=== PATIENT | male | born 1965 | race Caucasian/White ===

== ENCOUNTER 2017-02-15 16:13 | Inpatient (IN) | payer MEDICAID ==
[~2017-02-15] VITALS: Ht 160 cm; Wt 74.4 kg
[2017-02-15 16:51] VITALS: BP 245/95
[2017-02-15] MEDS ORDERED: NITROGLYCERIN 0.4 MG TAB SL ONE (17:05)
[2017-02-15] MEDS ORDERED: ASPIRIN 325 MG TAB PO ONE (17:05)
[2017-02-15 17:23] LABS: BASOPHILS # (AUTO) 0.3 K/uL (0.00-0.22); EOSINOPHILS # (AUTO) 0.2 K/uL (0-0.4); HEMOGLOBIN 11.9 g/dL (12.0-18.0); LYMPHOCYTES # (AUTO) 1.5 K/uL (2.0-11.5); MEAN CORPUSCULAR HEMOGLOBIN 29 pg (27-31); MEAN CORPUSCULAR HGB CONC 33 g/dL (33-37); MEAN CORPUSCULAR VOLUME 87 fL (80-94); MONOCYTES # (AUTO) 0.3 K/uL (0.8-1.0); NEUTROPHILS # (AUTO) 4.8 K/uL (1.8-7.7); PLATELET COUNT (AUTO) 180 K/uL (140-450); RED BLOOD CELL COUNT(AUTO) 4.13 MIL/uL (4.20-6.10); RED CELL DISTRIBUTION WIDTH 13.6 % (11.6-13.7); WHITE BLOOD COUNT (AUTO) 7.1 K/uL (4.8-10.8)
[2017-02-15] MEDS ORDERED: NITROGLYCERIN 50 MG/D5W PREMIX 250 ML IV ONE (17:35)
[2017-02-15 17:45] LABS: ALBUMIN 3.6 g/dL (3.4-5.0); ANION GAP 15.9 (8-16); CALCIUM 8.2 mg/dL (8.5-10.1); CARBON DIOXIDE 21.7 mmol/L (21-32); POTASSIUM 5.6 mmol/L (3.5-5.1); TOTAL BILIRUBIN 0.3 mg/dL (0.0-1.0); TOTAL PROTEIN, SERUM 7.2 g/dL (6.4-8.2)
[2017-02-15] MEDS ORDERED: SODIUM POLYSTYRENE 15 GM/60 ML UDBTL PO ONE ×2 (18:00→20:30)
[2017-02-15] MEDS ORDERED: INSULIN HUMAN REGULAR 100 UNITS/ML 10 ML VIAL IVP ONE (18:00)
[2017-02-15] MEDS ORDERED: DEXTROSE 50% 50 ML SYR IVP ONE (18:00)
[2017-02-15] MEDS ORDERED: NACL 0.9% 1,000 ML IV ONE ×2 (18:30→19:20)
[2017-02-15] MEDS ORDERED: VANCOMYCIN 1,000 MG in DEXTROSE 5% 250 ML IV ONE (18:40)
[2017-02-15] MEDS ORDERED: hydrALAZINE 20 MG/ML VIAL IVP ONE (18:40)
[2017-02-15 18:44] LABS: APPEARANCE,URINE CLEAR (CLEAR); BILIRUBIN,URINE NEGATIVE (NEGATIVE); BLOOD, URINE TRACE-I (NEGATIVE); COLOR,URINE YELLOW (YELLOW); LEUKOCYTE ESTERASE ,URINE NEGATIVE (NEGATIVE); NITRITE, URINE NEGATIVE (NEGATIVE); PH,URINE 5.5 (5.0-9.0); PROTEIN,URINE 2+ (NEGATIVE); UGLUCOSE NEGATIVE (NEGATIVE); UROBILINOGEN,URINE 0.2 EU/dL (0.2 - 1)
[2017-02-15] MEDS ORDERED: DOCUSATE SODIUM 100 MG GELCAP PO PRN (18:50)
[2017-02-15] MEDS ORDERED: HYDROcodone/APAP 7.5/325 MG 1 TAB PO PRN (18:50)
[2017-02-15 18:57] LABS: BACTERIA,URINE RARE /HPF (None Seen); MUCUS,URINE 1+ /LPF (None Seen); RBC,URINE 0-3 /HPF (0-5); SQUAMOUS EPITHELIAL CELL,UR 0-3 /LPF (0-3 (FEW)); URINE AMORPHOUS URATE 1+ /HPF (None Seen); WBC,URINE 0-3 /HPF (0-5)
[2017-02-15] MEDS ORDERED: cefTRIAXone 1,000 MG VIAL ONE (19:04)
[2017-02-15] MEDS ORDERED: VANCOMYCIN 1,000 MG VIAL ONE (19:05)
[2017-02-15 19:19] LABS: INR 0.9 (0.8-1.2); PROTHROMBIN TIME 9.6 secs (10.8-13.4)
[2017-02-15] MEDS ORDERED: ACETAMINOPHEN 325 MG TAB ONE (19:20)
[2017-02-15 19:35] LABS: MAGNESIUM 3.2 mg/dL (1.8-2.4); PHOSPHORUS 4.8 mg/dL (2.5-4.9); THYROID STIMULATING HORMONE 2.48 uIU/mL (0.34-3.74)
[2017-02-15 19:58] LABS: LACTIC ACID 0.3 mmol/L (0.4-2.0)
[2017-02-15] MEDS ORDERED: MECLIZINE 25 MG TAB PO ONE (20:15)
[2017-02-15 21:00] VITALS: BP 170/71
[2017-02-15] MEDS: cefTRIAXone 2,000 MG in DEXTROSE 5% 100 ML IV SCH (21:00)
[2017-02-15] MEDS ORDERED: MORPHINE SULFATE 4 MG/ML SYR IVP ONE (21:05)
[2017-02-15] MEDS ORDERED: LORazepam 2 MG/ML VIAL IVP ONE (21:05)
[2017-02-15] MEDS: ONDANSETRON 4 MG/2 ML VIAL IM/IVP PRN (21:14)
[2017-02-15] MEDS ORDERED: cefTRIAXone 2,000 MG VIAL ONE (21:37)
[2017-02-15] MEDS: NACL 0.9% 1,000 ML IV SCH (21:47)
[2017-02-15] MEDS ORDERED: LIDOCAINE 1% 500 MG/50 ML VIAL INJ SCH (22:20)
[2017-02-16] VITALS (13 sets, daily range): BP systolic 134–202; BP diastolic 63–127
[2017-02-16] MEDS: MORPHINE SULFATE 2 MG/ML SYR IVP PRN ×2 (00:13→20:40)
[2017-02-16] MEDS ORDERED: LABETALOL 100 MG/20 ML VIAL IV PRN (00:40)
[2017-02-16] MEDS: ACETAMINOPHEN 325 MG TAB PO PRN ×3 (01:18→14:04)
[2017-02-16] MEDS ORDERED: LABETALOL 100 MG/20 ML VIAL ONE (01:21)
[2017-02-16] MEDS: LABETALOL 100 MG/20 ML VIAL IV PRN ×3 (01:29→14:04)
[2017-02-16 07:52] LABS: BASOPHILS # (AUTO) 0.1 K/uL (0.00-0.22); BASOPHILS % (AUTO) 0.8 % (0.0-2.0); EOSINOPHILS # (AUTO) 0.1 K/uL (0-0.4); EOSINOPHILS % (AUTO) 1.7 % (0.0-4.0); HEMATOCRIT 34.3 % (36-52); HEMOGLOBIN 11.3 g/dL (12.0-18.0); LYMPHOCYTES # (AUTO) 0.9 K/uL (2.0-11.5); LYMPHOCYTES % (AUTO) 12.2 % (20.5-51.1); MEAN CORPUSCULAR HEMOGLOBIN 29 pg (27-31); MEAN CORPUSCULAR HGB CONC 33 g/dL (33-37); MEAN CORPUSCULAR VOLUME 88 fL (80-94); MONOCYTES # (AUTO) 0.5 K/uL (0.8-1.0); NEUTROPHILS # (AUTO) 6.1 K/uL (1.8-7.7); NEUTROPHILS % (AUTO) 78.3 % (42.2-75.2); PLATELET COUNT (AUTO) 175 K/uL (140-450); RED BLOOD CELL COUNT(AUTO) 3.92 MIL/uL (4.20-6.10); RED CELL DISTRIBUTION WIDTH 13.3 % (11.6-13.7); WHITE BLOOD COUNT (AUTO) 7.7 K/uL (4.8-10.8)
[2017-02-16 08:17] LABS: ANION GAP 16.6 (8-16); CALCIUM 7.7 mg/dL (8.5-10.1); CARBON DIOXIDE 20.2 mmol/L (21-32); CREATININE 2.7 mg/dL (0.7-1.3); POTASSIUM 4.8 mmol/L (3.5-5.1)
[2017-02-16] MEDS: NACL 0.9% 1,000 ML IV SCH ×2 (08:18→13:30)
[2017-02-16 08:20] LABS: T4 (THYROXINE) 6.1 ug/dL (4.5-12.0)
[2017-02-16 08:21] LABS: MAGNESIUM 2.5 mg/dL (1.8-2.4); PHOSPHORUS 3.7 mg/dL (2.5-4.9)
[2017-02-16] MEDS ORDERED: amLODIPine 5 MG TAB PO SCH (09:00)
[2017-02-16] MEDS: cefTRIAXone 2,000 MG in DEXTROSE 5% 100 ML IV SCH ×2 (09:12→20:23)
[2017-02-16] MEDS: ASPIRIN 81 MG TAB.CHEW PO SCH (09:13)
[2017-02-16] MEDS: ATORVASTATIN 20 MG TAB PO SCH (09:13)
[2017-02-16] MEDS ORDERED: INSULIN LISPRO SLIDING SCALE 100 UNITS/ML VIAL SUBQ PRN (10:25)
[2017-02-16] MEDS ORDERED: DEXTROSE 50% 50 ML SYR IVP PRN (10:25)
[2017-02-16] MEDS: BLOOD GLUCOSE MONITORING 1 DEV DEV FS SCH ×3 (12:23→20:30)
[2017-02-16] MEDS ORDERED: MIDAZOLAM 2 MG/2 ML VIAL ONE (12:52)
[2017-02-16] MEDS ORDERED: fentaNYL 0.05 MG/ML VIAL ONE (12:52)
[2017-02-16 15:38] LABS: CSF APPEARANCE CLEAR (CLEAR); CSF COLOR COLORLESS (COLORLESS)
[2017-02-16 15:54] LABS: CSF RED BLOOD CELL COUNT 104 /cumm (0-0); CSF WHITE BLOOD CELL COUNT 4 /cumm (0-5)
[2017-02-16 16:06] LABS: CSF GLUCOSE 95 mg/dL (40-70); CSF PROTEIN 71.7 mg/dL (15-45)
[2017-02-16] MEDS: INSULIN LISPRO SLIDING SCALE 100 UNITS/ML VIAL SUBQ PRN (17:57)
[2017-02-17] VITALS: BP 195/81
[2017-02-17] MEDS: ACETAMINOPHEN 325 MG TAB PO PRN ×2 (00:26→17:03)
[2017-02-17] MEDS: LABETALOL 100 MG/20 ML VIAL IV PRN (00:36)
[2017-02-17] MEDS: NACL 0.9% 1,000 ML IV SCH ×3 (01:02→16:16)
[2017-02-17] MEDS: MORPHINE SULFATE 2 MG/ML SYR IVP PRN ×2 (01:54→09:56)
[2017-02-17 04:00] VITALS: BP 125/92
[2017-02-17] MEDS: BLOOD GLUCOSE MONITORING 1 DEV DEV FS SCH ×4 (06:28→20:34)
[2017-02-17 08:00] VITALS: BP 197/80
[2017-02-17] MEDS ORDERED: LISINOPRIL 5 MG TAB PO SCH (09:00)
[2017-02-17] MEDS ORDERED: LISINOPRIL 20 MG TAB PO SCH (09:00)
[2017-02-17] MEDS ORDERED: METOPROLOL 25 MG TAB PO SCH (09:00)
[2017-02-17] MEDS: ATORVASTATIN 20 MG TAB PO SCH (09:22)
[2017-02-17] MEDS: cefTRIAXone 2,000 MG in DEXTROSE 5% 100 ML IV SCH ×2 (09:23→20:28)
[2017-02-17] MEDS: ASPIRIN 81 MG TAB.CHEW PO SCH (09:23)
[2017-02-17] MEDS: ONDANSETRON 4 MG/2 ML VIAL IM/IVP PRN ×2 (09:55→12:43)
[2017-02-17] MEDS ORDERED: HYDROmorphone 1 MG/ML AMP IVP PRN (11:55)
[2017-02-17 12:00] VITALS: BP 181/85
[2017-02-17] MEDS: hydrALAZINE 20 MG/ML VIAL IVP SCH ×2 (12:34→13:41)
[2017-02-17] MEDS ORDERED: LABETALOL 100 MG/20 ML VIAL IV ONE (15:45)
[2017-02-17 15:53] LABS: BASOPHILS # (AUTO) 0.1 K/uL (0.00-0.22); BASOPHILS % (AUTO) 1.3 % (0.0-2.0); EOSINOPHILS # (AUTO) 0.2 K/uL (0-0.4); EOSINOPHILS % (AUTO) 1.8 % (0.0-4.0); HEMATOCRIT 33.8 % (36-52); LYMPHOCYTES # (AUTO) 1.3 K/uL (2.0-11.5); LYMPHOCYTES % (AUTO) 12.2 % (20.5-51.1); MEAN CORPUSCULAR HEMOGLOBIN 28 pg (27-31); MEAN CORPUSCULAR HGB CONC 33 g/dL (33-37); MEAN CORPUSCULAR VOLUME 87 fL (80-94); MONOCYTES # (AUTO) 1.1 K/uL (0.8-1.0); MONOCYTES % (AUTO) 9.7 % (1.7-9.3); NEUTROPHILS # (AUTO) 8.3 K/uL (1.8-7.7); PLATELET COUNT (AUTO) 171 K/uL (140-450); RED BLOOD CELL COUNT(AUTO) 3.87 MIL/uL (4.20-6.10); RED CELL DISTRIBUTION WIDTH 13.5 % (11.6-13.7)
[2017-02-17 16:00] VITALS: BP 180/80
[2017-02-17] MEDS ORDERED: LABETALOL 100 MG/20 ML VIAL IV SCH (16:05)
[2017-02-17 16:07] LABS: CALCIUM 7.9 mg/dL (8.5-10.1); CARBON DIOXIDE 21.6 mmol/L (21-32); CREATININE 2.4 mg/dL (0.7-1.3); POTASSIUM 4.6 mmol/L (3.5-5.1)
[2017-02-17 16:09] LABS: MAGNESIUM 2.1 mg/dL (1.8-2.4); PHOSPHORUS 3.4 mg/dL (2.5-4.9)
[2017-02-17] MEDS ORDERED: NACL 0.9% 1,000 ML IV SCH (16:55)
[2017-02-17] MEDS: glyBURIDE 2.5 MG TAB PO SCH (17:02)
[2017-02-17] MEDS ORDERED: FUROSEMIDE 20 MG/2 ML VIAL IVP SCH (17:05)
[2017-02-17] MEDS: INSULIN LISPRO SLIDING SCALE 100 UNITS/ML VIAL SUBQ PRN (17:09)
[2017-02-17 20:00] VITALS: BP 164/71
[2017-02-17] MEDS: HYDROmorphone 1 MG/ML AMP IVP PRN (21:25)
[2017-02-18] VITALS: BP 185/78
[2017-02-18] MEDS ORDERED: hydrALAZINE 20 MG/ML VIAL ONE (02:01)
[2017-02-18] MEDS: hydrALAZINE 20 MG/ML VIAL IVP PRN ×2 (02:03→11:02)
[2017-02-18 04:00] VITALS: BP 186/86
[2017-02-18] MEDS ORDERED: hydrALAZINE 20 MG/ML VIAL IVP SCH ×2 (04:00→12:18)
[2017-02-18] MEDS: HYDROmorphone 1 MG/ML AMP IVP PRN ×2 (04:03→12:03)
[2017-02-18] MEDS: ACETAMINOPHEN 325 MG TAB PO PRN ×2 (05:22→16:33)
[2017-02-18] MEDS: BLOOD GLUCOSE MONITORING 1 DEV DEV FS SCH ×4 (06:38→20:32)
[2017-02-18 07:18] LABS: EOSINOPHILS # (AUTO) 0.1 K/uL (0-0.4); HEMOGLOBIN 11.6 g/dL (12.0-18.0); MONOCYTES # (AUTO) 0.8 K/uL (0.8-1.0); MONOCYTES % (AUTO) 6.1 % (1.7-9.3); NEUTROPHILS # (AUTO) 10.5 K/uL (1.8-7.7)
[2017-02-18] MEDS: INSULIN LISPRO SLIDING SCALE 100 UNITS/ML VIAL SUBQ PRN ×2 (07:34→21:36)
[2017-02-18 07:36] LABS: BASOPHILS % (AUTO) 0.4 % (0.0-2.0); HEMATOCRIT 35.2 % (36-52); LYMPHOCYTES % (AUTO) 7.7 % (20.5-51.1); MEAN CORPUSCULAR HEMOGLOBIN 29 pg (27-31); MEAN CORPUSCULAR HGB CONC 33 g/dL (33-37); MEAN CORPUSCULAR VOLUME 89 fL (80-94); NEUTROPHILS % (AUTO) 84.8 % (42.2-75.2); PLATELET COUNT (AUTO) 155 K/uL (140-450); RED BLOOD CELL COUNT(AUTO) 3.97 MIL/uL (4.20-6.10); WHITE BLOOD COUNT (AUTO) 12.4 K/uL (4.8-10.8)
[2017-02-18 07:46] LABS: ANION GAP 16.7 (8-16); CALCIUM 8.3 mg/dL (8.5-10.1); CREATININE 2.5 mg/dL (0.7-1.3); MAGNESIUM 1.9 mg/dL (1.8-2.4); PHOSPHORUS 4.1 mg/dL (2.5-4.9); POTASSIUM 4.7 mmol/L (3.5-5.1)
[2017-02-18 08:00] VITALS: BP 140/66
[2017-02-18] MEDS: amLODIPine 5 MG TAB PO SCH (08:43)
[2017-02-18] MEDS: glyBURIDE 2.5 MG TAB PO SCH ×2 (08:44→16:33)
[2017-02-18] MEDS: ATORVASTATIN 20 MG TAB PO SCH (08:44)
[2017-02-18] MEDS: LISINOPRIL 20 MG TAB PO SCH (08:44)
[2017-02-18] MEDS: cefTRIAXone 2,000 MG in DEXTROSE 5% 100 ML IV SCH ×2 (08:45→21:05)
[2017-02-18] MEDS: ASPIRIN 81 MG TAB.CHEW PO SCH (08:45)
[2017-02-18] MEDS ORDERED: METOPROLOL 50 MG TAB PO SCH (09:00)
[2017-02-18 12:00] VITALS: BP 154/77
[2017-02-18] MEDS ORDERED: FUROSEMIDE 20 MG/2 ML VIAL IVP SCH (12:20)
[2017-02-18] MEDS ORDERED: LABETALOL 100 MG/20 ML VIAL IV SCH (12:30)
[2017-02-18] MEDS ORDERED: HYDROmorphone 1 MG/ML AMP IVP SCH (12:30)
[2017-02-18] MEDS: hydrALAZINE 25 MG TAB PO SCH ×2 (13:29→16:33)
[2017-02-18 16:00] VITALS: BP 145/76
[2017-02-18] MEDS ORDERED: HYDROmorphone 1 MG/ML AMP IVP PRN (16:20)
[2017-02-18] MEDS ORDERED: LORazepam 2 MG/ML VIAL IM/IVP ONE (19:30)
[2017-02-18 20:30] VITALS: BP 156/77
[2017-02-19] VITALS: BP 188/84
[2017-02-19 04:00] VITALS: BP 162/73
[2017-02-19] MEDS: ACETAMINOPHEN 325 MG TAB PO PRN ×2 (04:08→17:17)
[2017-02-19] MEDS: BLOOD GLUCOSE MONITORING 1 DEV DEV FS SCH ×3 (06:23→16:40)
[2017-02-19 06:49] LABS: BASOPHILS % (AUTO) 0.4 % (0.0-2.0); EOSINOPHILS # (AUTO) 0.2 K/uL (0-0.4); HEMOGLOBIN 11.3 g/dL (12.0-18.0); LYMPHOCYTES # (AUTO) 1.2 K/uL (2.0-11.5); LYMPHOCYTES % (AUTO) 14.1 % (20.5-51.1); MEAN CORPUSCULAR HEMOGLOBIN 30 pg (27-31); MEAN CORPUSCULAR HGB CONC 33 g/dL (33-37); MEAN CORPUSCULAR VOLUME 89 fL (80-94); MONOCYTES # (AUTO) 0.7 K/uL (0.8-1.0); MONOCYTES % (AUTO) 8.2 % (1.7-9.3); NEUTROPHILS # (AUTO) 6.1 K/uL (1.8-7.7); NEUTROPHILS % (AUTO) 75.3 % (42.2-75.2); PLATELET COUNT (AUTO) 169 K/uL (140-450); RED BLOOD CELL COUNT(AUTO) 3.82 MIL/uL (4.20-6.10); RED CELL DISTRIBUTION WIDTH 13.1 % (11.6-13.7); WHITE BLOOD COUNT (AUTO) 8.2 K/uL (4.8-10.8)
[2017-02-19 07:11] LABS: ANION GAP 12.8 (8-16); CALCIUM 8.1 mg/dL (8.5-10.1); CARBON DIOXIDE 24.7 mmol/L (21-32); CREATININE 2.5 mg/dL (0.7-1.3); POTASSIUM 4.5 mmol/L (3.5-5.1)
[2017-02-19 07:17] LABS: MAGNESIUM 2.1 mg/dL (1.8-2.4); PHOSPHORUS 4.6 mg/dL (2.5-4.9)
[2017-02-19 08:00] VITALS: BP 169/83
[2017-02-19] MEDS: ATORVASTATIN 20 MG TAB PO SCH (08:25)
[2017-02-19] MEDS: LISINOPRIL 20 MG TAB PO SCH (08:26)
[2017-02-19] MEDS: amLODIPine 5 MG TAB PO SCH (08:26)
[2017-02-19] MEDS: glyBURIDE 2.5 MG TAB PO SCH ×2 (08:26→17:03)
[2017-02-19] MEDS: ASPIRIN 81 MG TAB.CHEW PO SCH (08:26)
[2017-02-19] MEDS: cefTRIAXone 2,000 MG in DEXTROSE 5% 100 ML IV SCH (08:26)
[2017-02-19] MEDS ORDERED: HYDROCHLOROTHIAZIDE 25 MG TAB PO SCH (09:00)
[2017-02-19] MEDS ORDERED: METOPROLOL SUCCINATE 50 MG TABER PO SCH (09:00)
[2017-02-19 10:58] LABS: AMPHETAMINE, URINE NEG. ng/ml (NEG <=1000); BARBITURATE, URINE NEG. ng/ml (NEG <=200); BENZODIAZEPINE, URINE NEG. ng/mL (NEG <=200); CANNABINOID, URINE NEG. ng/mL (NEG <=50); COCAINE, URINE NEG. ng/mL (NEG <=300); OPIATE, URINE NEG. ng/mL (NEG <=2000); PHENCYCLIDINE SCREEN,URINE NEG. ng/mL (NEG <=25)
[2017-02-19 12:00] VITALS: BP 163/78
[2017-02-19] MEDS: INSULIN LISPRO SLIDING SCALE 100 UNITS/ML VIAL SUBQ PRN (12:43)
[2017-02-19] MEDS ORDERED: hydrALAZINE 25 MG TAB PO SCH (13:00)
[2017-02-19] MEDS ORDERED: GLYB2.5T10 PO (13:50)
[2017-02-19] MEDS ORDERED: METO50TA9 PO (13:50)
[2017-02-19] MEDS ORDERED: ASPI81CT27 PO (13:50)
[2017-02-19] MEDS ORDERED: ORE25 PO (13:50)
[2017-02-19] MEDS ORDERED: AMLO5TAB4 PO (13:50)
[2017-02-19] MEDS ORDERED: HYDR100T79 PO (13:50)
[2017-02-19] MEDS ORDERED: LISI-420 PO (13:50)
[2017-02-19 16:00] VITALS: BP 144/71
== END 2017-02-19 17:45 | disposition home or self-care (01) | DRG 52 ==
LOC: MED 16:13 → MTU 18:51
PROVIDERS: ADMIT Family Medicine; ATTEND Family Medicine
PROC: 009U3ZX Drainage of Spinal Canal, Percutaneous Approach, Diagnostic (ICD-10-PCS; principal; 2017-02-16)
PROC: B01B1ZZ Fluoroscopy of Spinal Cord using Low Osmolar Contrast (ICD-10-PCS; 2017-02-16)
DX: I67.4 Hypertensive encephalopathy (principal); N17.0 Acute kidney failure with tubular necrosis; D68.59 Other primary thrombophilia; E11.65 Type 2 diabetes mellitus with hyperglycemia; E11.51 Type 2 diabetes mellitus with diabetic peripheral angiopathy without gangrene; E83.41 Hypermagnesemia; E87.5 Hyperkalemia; I65.22 Occlusion and stenosis of left carotid artery; I16.0 Hypertensive urgency
CPT/HCPCS: 36415; 70450; 71010; 77003; 80048; 80053; 80305; 81001; 82550; 82948; 83036; 83605; 83735; 83880; 84100; 84157; 84436; 84443; 84479; 84484; 85025; 85610; 85651; 86140; 87040; 87081; 87205; 87804; 93005; 93880; 93925; 93970; 93976; 96365; 96367; 96375; 99285; J0360; J0696; J1170; J1815; J1940; J2250; J2270; J2405; J3010; J3370; J3490; J7030; J7060; Q0092